=== PATIENT | male | born 1960 | race Caucasian/White ===

== ENCOUNTER 2020-08-15 14:39 | Inpatient (IN) | payer MEDICARE, OTHER ==
[~2020-08-15] VITALS: Ht 182.9 cm; Wt 154.2 kg
[2020-08-15 16:11] LABS: HEMOGLOBIN 14.4 gm/dl (14.0-17.5); RED BLOOD COUNT 4.82 M/UL (4.20-5.50); WHITE BLOOD COUNT 3.8 K/UL (4.5-11.0)
[2020-08-15 16:36] LABS: BUN/CREATININE RATIO 15 (0-10)
[2020-08-16] MEDS ORDERED: BYETTA 1010 MCG/2.4 SC ×2 (02:47→03:23)
[2020-08-16] MEDS ORDERED: MELOXICAM15 MG PO ×2 (02:48→03:24)
[2020-08-16] MEDS ORDERED: NUVIGIL250 MG PO ×2 (02:50→03:25)
[2020-08-16] MEDS ORDERED: PROVENTIL HFA6.7 GM INH ×2 (02:51→03:26)
[2020-08-16] MEDS ORDERED: LAMISIL TAB 25250 MG PO ×2 (02:52→03:27)
[2020-08-16] MEDS ORDERED: PREGABALIN50 MG PO ×2 (02:52→03:28)
[2020-08-16] MEDS ORDERED: LEVOTHYROXINE200 MC1 PO ×2 (02:53→03:28)
[2020-08-16] MEDS ORDERED: PENVEE K 500 M500 MG PO ×2 (02:53→03:31)
[2020-08-16] MEDS ORDERED: METFORMIN HCL1000 MG PO ×2 (02:53→03:29)
[2020-08-16] MEDS ORDERED: FUROSEMIDE40 MG PO ×2 (02:54→03:30)
[2020-08-16] MEDS ORDERED: MONTELUKAST SOD10 MG PO ×2 (02:54→03:29)
[2020-08-16] MEDS ORDERED: OMEPRAZOLE40 MG PO ×2 (02:54→03:29)
[2020-08-16] MEDS ORDERED: GLUCOTROL 10 MG10 MG PO ×2 (02:55→03:30)
[2020-08-16] MEDS ORDERED: LISINOPRIL10 MG PO ×2 (02:55→03:30)
[2020-08-16] MEDS ORDERED: POTASSIUM CHLO10 ME1 PO ×2 (02:55→03:30)
[2020-08-16] MEDS ORDERED: TOPIRAMATE50 MG PO ×2 (02:56→03:30)
[2020-08-16] MEDS ORDERED: ATORVASTATIN CA80 MG PO (03:31)
[2020-08-16] MEDS ORDERED: LOPRESSOR 25 MG25 MG PO (03:31)
[2020-08-16] MEDS ORDERED: LOTRISONE CREAM15 GM TP (03:32)
[2020-08-16 05:48] LABS: HEMOGLOBIN 12.5 gm/dl (14.0-17.5); WHITE BLOOD COUNT 13.5 K/UL (4.5-11.0)
[2020-08-16 05:49] LABS: RED BLOOD COUNT 4.19 M/UL (4.20-5.50)
[2020-08-16 06:14] LABS: BUN/CREATININE RATIO 19 (0-10)
[2020-08-16 11:33] LABS: ACINETOBACTER BAUMANNII Not Detected (Negative); CANDIDA ALBICANS Not Detected (Negative); CANDIDA KRUSEI Not Detected (Negative); CANDIDA TROPICALIS Not Detected (Negative); ENTEROCOCCUS Not Detected (Negative); HAEMOPHILUS INFLUENZAE Not Detected (Negative); KLEBSIELLA OXYTOCA Not Detected (Negative); KLEBSIELLA PNEUMONIAE Not Detected (Negative); KPC-CARBAPENEM-RESISTANCE GENE Not Detected (Negative); PROTEUS Not Detected (Negative); PSEUDOMONAS AERUGINOSA Not Detected (Negative); SERRATIA MARCESANS Not Detected (Negative); STAPHYLOCOCCUS Not Detected (Negative); STAPHYLOCOCCUS AUREUS Not Detected (Negative); STREP AGALACTIAE (GROUP B) Not Detected (Negative); STREP PYOGENES (GROUP A) Not Detected (Negative); STREPTOCOCCUS Not Detected (Negative); mecA (METHICILLIN RESIST GENE Not Detected (Negative); vanA/B (VANCOMYCIN RESIST GENE Not Detected (Negative)
[2020-08-16 12:45] LABS: ESCHERICHIA COLI DETECTED (Negative)
[2020-08-18 05:46] LABS: HEMOGLOBIN 13.5 gm/dl (14.0-17.5); RED BLOOD COUNT 4.51 M/UL (4.20-5.50)
[2020-08-18 05:49] LABS: WHITE BLOOD COUNT 9.7 K/UL (4.5-11.0)
[2020-08-18 06:01] LABS: BUN/CREATININE RATIO 12 (0-10)
[2020-08-18] MEDS ORDERED: ELIQUIS5 M1 PO (11:28)
[2020-08-18] MEDS ORDERED: LEVOFLOXACIN750 MG PO (11:28)
== END 2020-08-18 17:38 | disposition home or self-care (01) | DRG 872 ==
LOC: ER1 14:39 → CDU 19:00 → MED SURG 4 08-16 16:53
PROVIDERS: Internal Medicine; Physician Assistant Medical; ADMIT Internal Medicine
PROC: B24BZZZ Ultrasonography of Heart with Aorta (ICD-10-PCS; principal; 2020-08-16)
DX: A41.51 Sepsis due to Escherichia coli [E. coli] (principal); N30.00 Acute cystitis without hematuria; Z68.42 Body mass index [BMI] 45.0-49.9, adult; E87.2 Acidosis; Z20.828 Contact with and (suspected) exposure to other viral communicable diseases; I48.91 Unspecified atrial fibrillation; I10 Essential (primary) hypertension; E11.9 Type 2 diabetes mellitus without complications; E03.9 Hypothyroidism, unspecified; E66.9 Obesity, unspecified; K21.9 Gastro-esophageal reflux disease without esophagitis; A41.89 Other specified sepsis; J45.909 Unspecified asthma, uncomplicated; I45.10 Unspecified right bundle-branch block; R60.9 Edema, unspecified; I20.9 Angina pectoris, unspecified; E78.5 Hyperlipidemia, unspecified; I87.2 Venous insufficiency (chronic) (peripheral); Z87.891 Personal history of nicotine dependence; Z82.49 Family history of ischemic heart disease and other diseases of the circulatory system; Z90.49 Acquired absence of other specified parts of digestive tract; Z79.84 Long term (current) use of oral hypoglycemic drugs; Z79.890 Hormone replacement therapy; Z79.899 Other long term (current) drug therapy
CPT/HCPCS: ECHO; 36415; 71045; 71275; 78452; 80048; 80053; 80202; 81001; 82550; 82553; 82962; 83605; 83735; 83874; 84484; 85025; 85027; 86140; 87040; 87077; 87086; 87150; 87186; 93005; 93306; 96365; 96366; 96367; 96368; 96372; 96375; 96376; 99285; A9502; G0378; J0696; J1160; J1650; J1885; J2543; J2785; J3370; J7070; Q9967; U0002

== ENCOUNTER → 2021-05-31 | Outpatient (CLI) | payer MEDICARE, OTHER ==
[~2021-05-31] MED LIST: ATORVASTATIN CA80 MG PO; BYETTA 1010 MCG/2.4 SC; ELIQUIS5 M1 PO; FUROSEMIDE40 MG PO; GLUCOTROL 10 MG10 MG PO; LAMISIL TAB 25250 MG PO; LEVOFLOXACIN750 MG PO; LEVOTHYROXINE200 MC1 PO; LISINOPRIL10 MG PO; LOPRESSOR 25 MG25 MG PO; LOTRISONE CREAM15 GM TP; MELOXICAM15 MG PO; METFORMIN HCL1000 MG PO; MONTELUKAST SOD10 MG PO; NUVIGIL250 MG PO; OMEPRAZOLE40 MG PO; PENVEE K 500 M500 MG PO; POTASSIUM CHLO10 ME1 PO; PREGABALIN50 MG PO; PROVENTIL HFA6.7 GM INH; TOPIRAMATE50 MG PO
== END ==
LOC: EXRD 10:13
DX: R06.9 Unspecified abnormalities of breathing (principal); R91.8 Other nonspecific abnormal finding of lung field
CPT/HCPCS: 71046

== ENCOUNTER → 2021-11-28 | Outpatient (CLI) | payer MEDICARE | LOC: EXRD 10:08 | DX: L03.032 Cellulitis of left toe (principal) | CPT/HCPCS: 73660 ==